=== PATIENT | male | born 1995 | race Caucasian/White ===

== ENCOUNTER 2020-03-21 00:50 | Emergency (ER) | payer OTHER, BC ==
[~2020-03-21] VITALS: Ht 182.9 cm; Wt 84.1 kg
[2020-03-21 00:58] VITALS: BP 147/70; Ht 182.9 cm; Wt 84.1 kg
[2020-03-21] MEDS ORDERED: TORADOL10 MG PO (01:34)
== END 2020-03-21 01:50 | disposition home or self-care (01) ==
LOC: D.ER 00:50
DX: S40.012A Contusion of left shoulder, initial encounter (principal); S46.912A Strain of unspecified muscle, fascia and tendon at shoulder and upper arm level, left arm, initial encounter; X58.XXXA Exposure to other specified factors, initial encounter; M25.512 Pain in left shoulder